=== PATIENT | male | born 1995 ===

== ENCOUNTER 2024-05-27 21:41 | Observation (INO) | payer SELFPAY ==
[~2024-05-27] VITALS: Ht 175.3 cm; Wt 61.8 kg
[2024-05-27] MEDS ORDERED: HYDROmorphone 0.5 MG/0.5 ML SYRINGE IV ONE ×2 (22:15→23:30)
[2024-05-27] MEDS ORDERED: NS 1,000 ML IV ONE (22:15)
[2024-05-27 22:16] LABS: BASO % 0.4 % (0.0-2.0); EOS # 0.3 K/mm3 (0.0-0.7); EOS % 2.7 % (0.0-4.0); GRAN # 7.4 K/mm3 (1.4-6.5); GRAN % 68.6 % (42.2-75.2); HEMATOCRIT 43.2 % (42.0-52.0); HEMOGLOBIN 14.9 g/dl (13.5-18.0); LYMPH # 2.3 K/mm3 (1.2-3.4); LYMPH % 21.3 % (20.0-51.0); MEAN CELL VOLUME 87 fl (80.0-100.0); MEAN CORPUSCULAR HEMOGLOBIN 30 pg (27-31); MEAN CORPUSCULAR HGB CONC 35 g/dl (33.0-37.0); MEAN PLATELET VOLUME 11.1 fl (7.4-10.4); MONO # 0.7 K/mm3 (0.1-0.6); MONO % 6.7 % (1.7-9.3); PLATELET COUNT 212 K/mm3 (130-400); RED BLOOD COUNT 4.99 M/mm3 (4.20-5.60); REDCELL DISTRIBUTION WIDTH-CV 12.6 % (11.5-14.5)
[2024-05-27] MEDS ORDERED: Iohexol 300 - 100 ML VIAL IV ONE (22:27)
[2024-05-27] MEDS ORDERED: NS 50 ML IV ONE (22:27)
[2024-05-27 22:34] LABS: ALBUMIN 4.2 g/dL (3.5-5.0); BILIRUBIN,TOTAL 0.3 mg/dL (0.2-1.2); CALCIUM 9.5 mg/dL (8.4-10.2); CREATININE, serum 0.83 mg/dL (0.72-1.25); POTASSIUM 3.7 mEq/L (3.5-4.5); TOTAL PROTEIN 6.7 g/dl (6.2-8.1)
[2024-05-28] VITALS (7 sets, daily range): BP systolic 98–123; BP diastolic 59–79; PULSE 62–77; TEMP 97.9–98.8
[2024-05-28] MEDS ORDERED: oxyCODONE/Acetaminophen 5-325 MG TAB PO PRN (01:30)
[2024-05-28] MEDS ORDERED: NS 1,000 ML IV SCH (01:30)
[2024-05-28] MEDS ORDERED: HYDROmorphone 0.5 MG/0.5 ML SYRINGE IV PRN (01:30)
[2024-05-28] MEDS ORDERED: Tdap Vaccine 0.5 ML SYRINGE IM ONE (02:15)
--- NOTE | 2024-05-28 02:25 | NUR ---
PT ADMITTED TO ROOM 329 PER CART FROM ED, PT AMBULATED FROM CART TO RESTROOM, VOIDED AND THEN GOT INTO BED, ICE CREAM SERVER ELOINA USED TO ORIENT PT TO FLOOR, ROOM AND POC, ADMISSION INTAKE, MED REC AND ASSESSMENT COMPLETE. PT ON 2L O2 PER NC D/T RT SIDED PNEUMO, IV PRESENT IN LAC, IVF INFUSING @ 125 CC/HR. NPO EXCEPT FOR SIPS WITH MEDS. C/O LEFT LOWER BACK AND FLANK PAIN OF 6/10, PERCOCET GIVEN QUESTIONS AND CONCERNS ADDRESSED WITH ICE CREAM SERVER ASSISTANCE. PT WANTS TO TRY AND SLEEP NOW.
--- NOTE | 2024-05-28 09:48 | NUR ---
Patient resting in bed, alert and oriented x 4, states pain 4/10 on left hip and spine. Assessment completed. Getting fluids per orders. No further needs at this time. Call light within reach.
--- NOTE | 2024-05-28 11:22 | NUR ---
lavender farm worker met with pt using [employer] #[id number] [place]. Pt reports to live with two friends in [place]. He does not have a PCP due to no insurance. SW provided PCP list and information on the [facility]. Pt confirmed to have no insurance. Pt obtains medications from [facility] with no reported difficulties. He is independent with ADLS and uses no DME. He reports his cousin, Marquis [phone] as his contact. He does not have a DPOA-HC, and reports his mother, Leigh Ann is still living and he did not have her phone number at this time. ZACH informed financial aid coordinator, Di of pt self pay status. Discharge Plan: home
--- NOTE | 2024-05-28 12:19 | NUR ---
D: Chief Librarian Music Department stopped by room on rounds. A: Pt was resting and content. Pt only speaks gabonese, stick puller was able to communicate with pt thru google translate. Pt has no needs right now. P: Chief Librarian Music Department informed pt that if he needed anything from the stick puller area to let his nurse know. Chief Librarian Music Department will follow up as needed.
--- NOTE | 2024-05-28 16:01 | NUR ---
Patient was provided with discharge information, all questions answered. IV access was discontinued.
[2024-05-29] MEDS ORDERED: Influenza Virus Vaccine, Trivalent '24-25 0.5 ML SYRINGE IM SCH (09:00)
== END 2024-05-28 16:30 | disposition home or self-care (01) ==
LOC: COL.ER 21:41 → SURG 05-28 00:37
PROVIDERS: Nurse Practitioner; ADMIT Surgery
DX: S32.019A Unspecified fracture of first lumbar vertebra, initial encounter for closed fracture (principal); S32.029A Unspecified fracture of second lumbar vertebra, initial encounter for closed fracture; S32.039A Unspecified fracture of third lumbar vertebra, initial encounter for closed fracture; S32.049A Unspecified fracture of fourth lumbar vertebra, initial encounter for closed fracture; V03.99XA Pedestrian with other conveyance injured in collision with car, pick-up truck or van, unspecified whether traffic or nontraffic accident, initial encounter; Y93.9 Activity, unspecified; Y92.9 Unspecified place or not applicable
CPT/HCPCS: G0378; J1171; J7030; Q9967